=== PATIENT | male | born 1995 | race Caucasian/White ===

== ENCOUNTER 2024-05-04 19:02 | Emergency (ER) | payer OTHER, SELFPAY ==
[2024-05-04 19:22] VITALS: BP 133/92; PULSE 95; RESP 16; TEMP 37.7; O2SAT 100
--- NOTE | 2024-05-04 19:48 | ED.NAVMDI ---
HPI - Nausea/Vomiting/Diarrhea General Chief complaint: Nausea/Vomiting/Diarrhea Stated complaint: Stomach Problems Time Seen by Provider: 05/04/24 19:27 Source: patient, family (Significant other) and RN notes reviewed Mode of arrival: ambulatory Limitations: no limitations History of Present Illness HPI Narrative: Patient presents today stating that he has had worms in his stool for 5-6 years. States today he was shown a photo of a worm in the toilet bowl of his significant other, which she believes to be a tape worm. After seeing this, patient states that he has had something very similar to this for the last several years and would like to be treated. Patient's history irritable bowel syndrome with diarrhea. Reports abdominal cramping with watery stools 4-5 times per day for the past month. He states he does have prescription for dicyclomine that he takes occasionally chest not been helping much. 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 Related Data Home Medications Medication Instructions Recorded Confirmed dicyclomine 1 tab-cap PO QID 05/04/24 05/04/24 Allergies Allergy/AdvReac Type Severity Reaction Status Date / Time No Known Allergies Allergy Verified 05/04/24 20:01 Review of Systems Review of Systems: CONSTITUTIONAL: Denies body aches, fever, chills, or sweats. EYES: Denies visual changes, redness, or discharge. ENT: Denies rhinorrhea, congestion, sore throat, or otalgia. CARDIOVASCULAR: Denies chest pain, palpitations, or edema. RESPIRATORY: Denies cough or dyspnea. GASTROINTESTINAL:+ abdominal cramping, diarrhea GENITOURINARY: Denies dysuria or hematuria. SKIN: Denies rash, itching, or wounds. MUSCULOSKELETAL: Denies back pain, joint pain, or myalgia. NEUROLOGIC: Denies headache, numbness, tingling, or weakness. PSYCH: Denies depression or anxiety. [facility] Past Medical History Medical History (Updated 05/04/24 @ 20:01 by Gypsy Dixon, FOOD WRITER, ) IBS (irritable bowel syndrome) Comments At time of signature, I have reviewed and agree with nursing past medical, surgical, social and family history unless otherwise noted. Please see nursing chart for further information. There is no relevant family history pertinent to the presenting complaint Exam Narrative: GENERAL: Well-appearing, well-nourished, and in no acute distress. HEAD: Normocephalic, atraumatic. EYES: EOMI. No redness or drainage. Conjunctivae normal. ENT: Mucous membranes pink and moist. NECK: Normal AROM. CHEST: No respiratory distress. Clear to auscultation. HEART: Regular rate and rhythm. No murmur appreciated. Normal peripheral pulses. ABDOMEN: Soft, nontender, nondistended, normal active bowel sounds. EXTREMITIES: Normal range of motion. No edema. SKIN: Warm, dry, no rash. Capillary refill normal. Normal skin turgor. NEURO: No focal deficits. Alert and oriented x3. Gait steady. PSYCH: Normal affect. No signs of depression or anxiety. Course Course Level of Care: Express Care Visit Vital Signs Vital signs: Vital Signs Temperature 100 F H 05/04/24 19:22 Pulse Rate 95 05/04/24 19:22 Respiratory Rate 16 05/04/24 19:22 Blood Pressure 133/92 H 05/04/24 19:22 Pulse Oximetry 100 05/04/24 19:22 Oxygen Delivery Room Air 05/04/24 19:22 Temperature 100 F H 05/04/24 19:22 Pulse Rate 95 05/04/24 19:22 Respiratory Rate 16 05/04/24 19:22 Blood Pressure 133/92 H 05/04/24 19:22 Pulse Oximetry 100 05/04/24 19:22 Oxygen Delivery Room Air 05/04/24 19:22 Reviewed MDM - Nausea/Vomiting/Diarrhea MDM Narrative Medical decision making narrative: Reviewed photo of patient's significant other. This is a photo of intestinal lining in a toilet bowl. No sign of parasite. Recommend PCP/GI follow-up for further evaluation of the day diarrhea. Anticipatory guidance given. Differential Diagnosis Differential diagnosis: L
== END 2024-05-04 20:00 | disposition home or self-care (01) ==
PROVIDERS: Emergency Provider Nurse Practitioner; PCP Physician Assistant
DX: K58.9 Irritable bowel syndrome, unspecified (principal)
CPT/HCPCS: 99202; G0463

== ENCOUNTER 2024-05-11 15:25 | Emergency (ER) | payer OTHER, SELFPAY ==
[2024-05-11 15:41] VITALS: BP 133/95; PULSE 107; RESP 16; TEMP 37.4; O2SAT 99
--- NOTE | 2024-05-11 16:19 | ED.SKABFB ---
HPI - Skin/Abscess/Foreign Bdy General Chief complaint: Skin/Abscess/Foreign Body Stated complaint: yeast infection of penis Time Seen by Provider: 05/11/24 16:07 Source: patient and RN notes reviewed Mode of arrival: ambulatory Limitations: no limitations History of Present Illness HPI narrative: Patient presents today complaining of a yeast infection to the tip of his penis for the past 3 weeks. States he has been using some [id number] antifungal cream which has been helping his symptoms. Denies pain or redness in the scrotum, dysuria, concerns for STDs. Related Data Home Medications Medication Instructions Recorded Confirmed dextroamphetamine-amphetamine 10 10 mg PO DAILY 05/11/24 05/11/24 mg tablet (Adderall) esomeprazole magnesium 20 mg 20 mg PO DAILY 05/11/24 05/11/24 capsule,delayed release (Nexium 24HR) Allergies Allergy/AdvReac Type Severity Reaction Status Date / Time No Known Allergies Allergy Verified 05/04/24 20:01 Review of Systems Review of Systems: CONSTITUTIONAL: Denies body aches, fever, chills, or sweats. EYES: Denies visual changes, redness, or discharge. ENT: Denies rhinorrhea, congestion, sore throat, or otalgia. CARDIOVASCULAR: Denies chest pain, palpitations, or edema. RESPIRATORY: Denies cough or dyspnea. GASTROINTESTINAL: Denies abdominal pain, nausea, vomiting, or diarrhea. GENITOURINARY: Denies dysuria or hematuria. SKIN: + rash to penis MUSCULOSKELETAL: Denies back pain, joint pain, or myalgia. NEUROLOGIC: Denies headache, numbness, tingling, or weakness. PSYCH: Denies depression or anxiety. [facility] Past Medical History Medical History IBS (irritable bowel syndrome) Comments At time of signature, I have reviewed and agree with nursing past medical, surgical, social and family history unless otherwise noted. Please see nursing chart for further information. There is no relevant family history pertinent to the presenting complaint Exam Narrative: GENERAL: Well-appearing, well-nourished, and in no acute distress. HEAD: Normocephalic, atraumatic. EYES: EOMI. No redness or drainage. Conjunctivae normal. ENT: Mucous membranes pink and moist. NECK: Normal AROM. CHEST: No respiratory distress. :Patient states his entire head of penis is red and has rash. Penis appears normal with exception of very scant white scaling area to dorsum of penis at base of head. EXTREMITIES: Normal range of motion. No edema. SKIN: Warm, dry, no rash. Capillary refill normal. Normal skin turgor. NEURO: No focal deficits. Alert and oriented x3. Gait steady. PSYCH: Normal affect. No signs of depression or anxiety. Course Course Level of Care: Express Care Visit Vital Signs Vital signs: Vital Signs Temperature 99.4 F 05/11/24 15:41 Pulse Rate 107 H 05/11/24 15:41 Respiratory Rate 16 05/11/24 15:41 Blood Pressure 133/95 H 05/11/24 15:41 Pulse Oximetry 99 05/11/24 15:41 Oxygen Delivery Room Air 05/11/24 15:41 Temperature 99.4 F 05/11/24 15:41 Pulse Rate 107 H 05/11/24 15:41 Respiratory Rate 16 05/11/24 15:41 Blood Pressure 133/95 H 05/11/24 15:41 Pulse Oximetry 99 05/11/24 15:41 Oxygen Delivery Room Air 05/11/24 15:41 Reviewed MDM - Skin/Abscess/Foreign Bdy MDM Narrative Medical decision making narrative: scant area of jock itch noted. Recommend continuing pain clotrimazole in tiny affected area at least for the next 1-2 weeks until after full resolution. Patient agrees with plan Differential Diagnosis Differential diagnosis: Likely dermatophytosis, eczema, contact dermatitis and other (herpes, tinea, kaleigh) Critical Care Time Critical Care Time Critical Care Time: No Discharge Plan Discharge Clinical Impression: Jock itch Patient Disposition: Home, Self-Care Condition: Stable Additional Instructions: Please use some topical clotrimazole
== END 2024-05-11 16:29 | disposition home or self-care (01) ==
PROVIDERS: Emergency Provider Nurse Practitioner; PCP Physician Assistant
DX: B35.6 Tinea cruris (principal)
CPT/HCPCS: 99211; G0463

== ENCOUNTER 2024-05-21 07:35 | Outpatient (CLI) | payer OTHER, SELFPAY ==
--- NOTE | ~2024-05-21 | US_ITS ---
EXAMINATION: US abdomen complete DATE: 05/21/2024 08:06 INDICATION: Abdominal pain TECHNIQUE: Multiple grayscale and Doppler ultrasound images of the abdomen were obtained. COMPARISON: None FINDINGS: Abdominal aorta appears normal and is of relatively uniform caliber decreasing from 1.9 cm AP proxima lly to 1.8 cm distally with no evident aneurysm. The inferior vena cava is normal. Liver has normal e chogenicity and contour, with a smooth surface. No liver lesion identified. No intrahepatic biliary d uct dilation suspected. Portal venous flow was seen in the hepatopetal, normal direction and has norm al Doppler waveform. The gallbladder is normal in appearance. There is no cholelithiasis. The common bile duct measures 3 mm, which is normal. Sonographic Stevens sign was reported as negative by the so nographer. There is normal renal contour and echogenicity bilaterally. The right kidney measures 10.3 x 5.1 x 5.7 cm and the left 4.0 x 5.6 x 5.3 cm. There are no focal renal lesions identified. There is no hydronephrosis. Normal spleen measuring up to 10.3 cm in maximal length. IMPRESSION: 1. Normal abdominal ultrasound. Reviewed, dictated and finalized at location A.
== END 2024-05-21 07:36 ==
PROVIDERS: PCP Physician Assistant; Visit Provider Physician Assistant
DX: R10.9 Unspecified abdominal pain (principal)
CPT/HCPCS: 76700

== ENCOUNTER 2024-06-22 08:24 | Outpatient (CLI) | payer OTHER, SELFPAY ==
--- NOTE | ~2024-06-22 | XR_ITS ---
XR shoulder LT min 2V Ordering provider: Aicha Beard, AND[place] History: . Left shoulder pain . Comparison: None. FINDINGS: BONES: No acute fracture or dislocation. JOINT SPACES: The acromioclavicular joint is normal. The glenohumeral joint is normal. SOFT TISSUES: Normal. IMPRESSION: No acute osseous abnormality left shoulder. Reviewed, dictated and finalized at location A.
== END 2024-06-22 08:25 ==
LOC: MICIMG 08:25
PROVIDERS: PCP Physician Assistant; Visit Provider Physician Assistant
DX: M25.512 Pain in left shoulder (principal)
CPT/HCPCS: 73030

== ENCOUNTER 2024-06-22 10:56 | Outpatient (CLI) | payer OTHER, SELFPAY ==
--- NOTE | ~2024-06-22 | US_ITS ---
US scrotum doppler INDICATION: Left testicular pain TECHNIQUE: Testicular sonogram utilizing grayscale and color Doppler FINDINGS: The testes are normal in size and appearance. No focal lesions are seen. The right testes measures 5.2 x 2.4 x 3 cm centimeters, and the left testis measures 4.7 x 2.3 x 3.2 cm cm. There is n ormal vascular flow to both testes. 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 The right and left epididymides appear normal. There is no significant hydrocele. There is a left varicocele. IMPRESSION: 1. Left varicocele. Reviewed, dictated and finalized at location B. IMPRESSION: 1. Left varicocele.
== END 2024-06-22 10:57 ==
LOC: MICIMG 10:56
PROVIDERS: PCP Physician Assistant; Visit Provider Physician Assistant
DX: I86.1 Scrotal varices (principal)
CPT/HCPCS: 76870; 93976

== ENCOUNTER 2024-09-22 09:31 | Outpatient (CLI) | payer OTHER, SELFPAY ==
--- NOTE | ~2024-09-22 | XR_ITS ---
HISTORY: PAIN OF L KNEE JOINT, MEDIAL PAIN, INJURY EARLY JUN. COMPARISON: None TECHNIQUE: 3 views of the left knee were performed FINDINGS: No acute or subacute fracture, erosion, lytic or sclerotic lesion. Medial tibiofemoral joint space narrowing is identified. No suprapatellar joint effusion is identified. The infrapatellar joint space is clear. 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 No acute fracture or dislocation. MRI is suggested for further evaluation. Reviewed, dictated and finalized at location A. 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 No acute fracture or dislocation. MRI is suggested for further evaluation.
== END 2024-09-22 09:32 | disposition home or self-care (01) ==
PROVIDERS: PCP Physician Assistant; Visit Provider Physician Assistant
DX: M17.12 Unilateral primary osteoarthritis, left knee (principal)
CPT/HCPCS: 73562

== ENCOUNTER 2024-11-15 13:10 | Outpatient (CLI) | payer OTHER, SELFPAY ==
--- NOTE | 2024-11-15 13:30 | NEURO_ITS ---
Impression: # Complains of paresthesia of left lower extremity. History of blunt trauma to left knee. ? # Normal Nerve Conduction Study. ? # Normal needle/EMG exam.? # Clinical correlation recommended. Nerve Conduction Studies Anti Sensory Summary Table ?Stim Site NR Peak (ms) P-T Amp (?V) Site1 Site2 Delta-P (ms) Dist (cm) Hernán (m/s) Left Sup Fibular Anti Sensory (Ant Lat Mall) 14 cm ? 2.7 37.3 14 cm Ant Lat Mall 2.7 16.0 59 Left Sural Anti Sensory (Lat Mall) Calf ? 2.6 9.5 Calf Lat Mall 2.6 16.0 62 Motor Summary Table ?Stim Site NR Onset (ms) O-P Amp (mV) Site1 Site2 Delta-0 (ms) Dist (cm) Hernán (m/s) Left Peroneal Motor (Vastus Med) Ankle ? 2.7 7.7 Popit Ankle 7.7 39.0 51 Popit ? 10.4 6.3 Left Tibial Motor (Abd Leone Brev) Ankle ? 3.4 7.1 Knee Ankle 8.2 41.0 50 Knee ? 11.6 4.8 F Wave Studies ?NR F-Lat (ms) L-R F-Lat (ms) Left Peroneal (Mrkrs) (EDB) ? 46.96 Left Tibial (Mrkrs) (Abd Hallucis) ? 45.89 EMG ?Side Muscle Nerve Root Ins Act Fibs Amp Dur Recrt Comment Left AntTibialis Dp Br Fibular L4-5 Nml Nml Nml Nml Nml Left Gastroc Tibial S1-2 Nml Nml Nml Nml Nml Left Fibularis Long Sup Br Fibular L5-S1 Nml Nml Nml Nml Nml Left Flex Dig Long Tibial L5-S2 Nml Nml Nml Nml Nml Left Ext Dig Brev Dp Br Fibular L5, S1 Nml Nml Nml Nml Nml Left QuadratusFem QuadFemoris L4-5, S1 Nml Nml Nml Nml Nml MTDD
== END 2024-11-15 13:11 | disposition home or self-care (01) ==
PROVIDERS: PCP Physician Assistant; Visit Provider Physician Assistant
DX: R20.2 Paresthesia of skin (principal); Z87.828 Personal history of other (healed) physical injury and trauma
CPT/HCPCS: 95886; 95908